=== PATIENT | female | born 1980 ===

== ENCOUNTER 2025-01-07 14:50 | Outpatient (CLI) | payer OTHER | END 2025-01-07 14:51 | disposition home or self-care (01) | LOC: CSHMAMMO 14:50 | PROVIDERS: ATTEND Family Medicine | DX: Z12.31 Encounter for screening mammogram for malignant neoplasm of breast (principal); N64.89 Other specified disorders of breast | CPT/HCPCS: 77063; 77067 ==

== ENCOUNTER 2025-02-08 09:38 | Outpatient (CLI) | payer OTHER | END 2025-02-08 09:39 | disposition home or self-care (01) | LOC: CSHMAMMO 09:38 | PROVIDERS: ATTEND Family Medicine | DX: N64.89 Other specified disorders of breast (principal) | CPT/HCPCS: G0279 ==